=== PATIENT | male | born 1955 | race Caucasian/White ===

== ENCOUNTER 2023-07-12 17:38 | Outpatient (CLI) | payer MEDICARE, OTHER, SELFPAY ==
[2023-07-12 17:45] LABS: Pathologist Comment May follow
[2023-07-12 19:09] LABS: Synovial Fld Mononuclear WBC # 0.573 10^3/ul; Synovial Fld Mononuclear WBC % 84.4 %; Synovial Fld Polynuclear WBC # 0.106 10^3/uL; Synovial Fld Polynuclear WBC % 15.6 %
[2023-07-12 20:23] LABS: Lymph 67 %; Monocyte /Synovial Fluid 20 %; Neutrophil 13 % (0-25); RBC /Synovial Fluid 0.006 10^6/uL (0)
[2023-07-12 20:24] LABS: AUTO B FLUID DILUENT BKGD CT WBC <0.1 RBC <0.01 (W<.1,R<.01); Appearance /Synovial Fluid Sl Cl (CLEAR); CRYSTALS, BODY FLUID NO CRYSTALS SEEN; Color / Synovial Fluid Yellow (Pale Yellow); Source / Synovial Fluid ELBOW; Source- Body Fluid SYNOVIAL
[2023-07-12 20:25] LABS: Body Fluid QC Type(s) BF3Q,BF4Q
[2023-07-15 12:16] LABS: Pathologist Review Reviewed
== END 2023-07-12 23:59 | disposition home or self-care (01) ==
PROVIDERS: Referring Provider Orthopaedic Surgery; Visit Provider Orthopaedic Surgery
DX: L03.114 Cellulitis of left upper limb (principal)
CPT/HCPCS: 87070; 87075; 87205; 89050; 89051; 89060